=== PATIENT | female | born 1965 | race Caucasian/White ===

== ENCOUNTER → 2016-06-20 | Outpatient (CLI) | payer MEDICARE, MEDICAID ==
[~2016-06-20] MED LIST: ACETAMINOPHEN650 M2 PO; BACTRIM DS1 TAB PO; BENADRYL25 MG PO; CRESTOR10 MG PO; DITROPAN XL5 MG PO; FLORASTOR250 MG PO; KLONOPIN0.5 M1 PO; LEVOTHYROXINE125 MCG PO; LEVOTHYROXINE50 MCG PO; LEXAPRO20 MG PO; LIDOCAINE 1% MD20 M1 IDER; LISINOPRIL20 MG PO; LODINE XL500 MG PO; LOVENOX40 MG/0.4 SUB-Q; MIRALAX17 GM PO; PERCOCET 5-3251 EACH PO; TRICOR 160 MG160 MG PO; TRICOR145 MG PO; VALIUM5 MG PO; VANCO-0.9%750 MG/150 IV
== END | disposition disaster alternative care site (69) ==
LOC: LGSMG 16:35
DX: M86.9 Osteomyelitis, unspecified (principal)

== ENCOUNTER → 2016-07-02 | Outpatient (CLI) | payer MEDICARE, MEDICAID ==
[2016-07-02 11:23] LABS: BASOPHIL # 0.1 K/uL (0.0-0.2); BASOPHIL % 0.7 %; EOSINOPHIL # 0.1 K/uL (0.0-0.5); EOSINOPHIL % 1.8 %; HEMATOCRIT 38.5 % (33.0-46.0); HEMOGLOBIN 12.7 g/dL (10.0-15.0); IMMATURE GRANULOCYTE % 0.5 %; LYMPHOCYTE # 1.2 K/uL (0.8-4.0); LYMPHOCYTE % 16.9 %; MCH 31.8 pg (27.0-34.0); MONOCYTE # 0.7 K/uL (0.0-1.0); MONOCYTE % 9.8 %; MPV 8.8 fl (9.4-12.4); NEUTROPHIL # (ANC) 5.2 K/uL (1.8-7.8); NEUTROPHIL % 70.3 %; NRBC % 0 /100WBC (0-0.00); RDW-CV 14.2 % (11.9-14.6); WBC 7.3 K/uL (4.0-11.0)
[2016-07-02 11:25] LABS: MCV 96.3 fl (83.0-98.0); PLATELET COUNT 401 K/uL (150-450)
== END | disposition disaster alternative care site (69) ==
LOC: GRAD 10:30
PROVIDERS: Orthopaedic Surgery
DX: T84.53XA Infection and inflammatory reaction due to internal right knee prosthesis, initial encounter (principal)